=== PATIENT | male | born 1985 | race African-American/Black ===

== ENCOUNTER 2022-07-26 10:00 | Emergency (ER) | payer OTHER ==
[~2022-07-26] VITALS: Ht 193 cm; Wt 88.6 kg
[2022-07-26 10:30] VITALS: BP 120/75
[2022-07-26] MEDS ORDERED: KETOROLAC 30MG/ML VIAL IM ONE (10:30)
[2022-07-26] MEDS ORDERED: NAPR-681 MT (10:37)
== END 2022-07-26 11:44 | disposition home or self-care (01) ==
LOC: ER 10:00
DX: M17.11 Unilateral primary osteoarthritis, right knee (principal); Z98.890 Other specified postprocedural states
CPT/HCPCS: 73560; 99283